=== PATIENT | female | born 1945 ===

== ENCOUNTER 2018-03-29 04:03 | Emergency (ER) | payer OTHER ==
[~2018-03-29] VITALS: Ht 157.5 cm; Wt 76.2 kg
[~2018-03-29 04:03] MED LIST: PROTONIX40 MG; VOLTAREN25 MG
[2018-03-29] MEDS ORDERED: ZYRTEC10 MG PO (06:22)
[2018-03-29] MEDS ORDERED: MEDROLPACK PO (06:22)
== END 2018-03-29 09:56 | disposition home or self-care (01) ==
LOC: ER 04:03
DX: R21 Rash and other nonspecific skin eruption (principal)